=== PATIENT | female | born 1970 | race Hispanic/Latino ===

== ENCOUNTER 2019-08-16 07:28 | Emergency (ER) | payer SELFPAY ==
[2019-08-16] MEDS ORDERED: ONDANSETRON HCL 4 MG/2 ML VIAL ONE (07:57)
[2019-08-16] MEDS ORDERED: LORAZEPAM 2 MG/ML 1 ML VIAL ONE (07:57)
[2019-08-16] MEDS ORDERED: SODIUM CHLORIDE 0.9% 1000ML 1,000 ML IV ONE (07:58)
== END 2019-08-16 09:47 | disposition home or self-care (01) ==
LOC: EDH 07:28
DX: F41.1 Generalized anxiety disorder (principal); R11.2 Nausea with vomiting, unspecified; F32.9 Major depressive disorder, single episode, unspecified; Z72.0 Tobacco use
CPT/HCPCS: 96361; 96374; 96375; 99285; J2060; J2405; J7030

== ENCOUNTER 2019-11-22 18:27 | Emergency (ER) | payer SELFPAY ==
[2019-11-22] MEDS ORDERED: ACETAMINOPHEN EXTRA STRENGTH 500 MG TABLET ONE (18:56)
== END 2019-11-22 18:35 | disposition home or self-care (01) ==
LOC: EDH 18:27
DX: S93.402A Sprain of unspecified ligament of left ankle, initial encounter (principal); X50.1XXA Overexertion from prolonged static or awkward postures, initial encounter; Y93.89 Activity, other specified; Y92.098 Other place in other non-institutional residence as the place of occurrence of the external cause; Y99.8 Other external cause status
CPT/HCPCS: 73610

== ENCOUNTER 2020-09-02 15:36 | Emergency (ER) | payer OTHER ==
[2020-09-02] MEDS ORDERED: KETOROLAC TROMETHAMINE 60 MG/2 ML VIAL ONE (15:55)
[2020-09-02] MEDS ORDERED: CYCLOBENZAPRINE HCL 10 MG TABLET ONE (15:55)
== END 2020-09-02 18:29 | disposition home or self-care (01) ==
LOC: EDH 15:36
DX: M51.16 Intervertebral disc disorders with radiculopathy, lumbar region (principal)
CPT/HCPCS: 72100; 72131; 96372; 99284; J1885

== ENCOUNTER 2020-12-04 15:22 | Emergency (ER) | payer OTHER | END 2020-12-04 15:50 | disposition left against medical advice (07) | LOC: EDH 15:22 | DX: Z53.21 Procedure and treatment not carried out due to patient leaving prior to being seen by health care provider (principal); I10 Essential (primary) hypertension; Z72.0 Tobacco use ==

== ENCOUNTER 2024-02-14 13:06 | Emergency (ER) | payer BC, OTHER ==
[~2024-02-14] VITALS: Ht 162.6 cm; Wt 65.8 kg
[2024-02-14 13:40] LABS: BASOPHILS # (AUTO) 0.03 K/uL (0.00-0.20); BASOPHILS % (AUTO) 0.3 % (0.0-5.0); EOSINOPHILS # (AUTO) 0.07 K/uL (0.00-0.70); EOSINOPHILS % (AUTO) 0.7 % (0.0-8.0); HEMATOCRIT 42.1 % (36-48); IMMATURE GRANULOCYTE ABSOLUTE 0.04 K/uL (0-1); LYMPHOCYTES # (AUTO) 2.4 K/uL (1.0-4.8); LYMPHOCYTES % (AUTO) 24.7 % (21.0-51.0); MEAN CORPUSCULAR HEMOGLOBIN 32.1 pg (27.0-33.0); MEAN CORPUSCULAR HGB CONC 34.2 g/dL (32.0-36.0); MEAN CORPUSCULAR VOLUME 93.8 fL (79-99); MONOCYTES # (AUTO) 0.8 K/uL (0.1-1.0); MONOCYTES % (AUTO) 7.8 % (3.0-13.0); NEUTROPHILS # (AUTO) 6.3 K/uL (1.8-7.7); NEUTROPHILS % (AUTO) 66.1 % (40.0-77.0); PLATELET COUNT (AUTO) 252 K/uL (130-400); RED BLOOD CELL COUNT(AUTO) 4.49 MIL/uL (4.00-5.50); RED CELL DISTRIBUTION WIDTH 14.6 % (11.0-15.5); WHITE BLOOD COUNT (AUTO) 9.6 K/uL (4.8-10.8)
[2024-02-14 13:44] LABS: APPEARANCE,URINE CLOUDY (CLEAR); BILIRUBIN,URINE NEGATIVE (NEGATIVE); COLOR,URINE YELLOW (YELLOW); GLUCOSE, URINE (UA) NEGATIVE (NEGATIVE); KETONES,URINE NEGATIVE (NEGATIVE); LEUKOCYTE ESTERASE ,URINE 500 Leu/uL (NEGATIVE); NITRATE,URINE NEGATIVE (NEGATIVE); OCCULT BLOOD,URINE SMALL (NEGATIVE); PROTEIN,URINE 20 mg/dL (NEGATIVE); UROBILINOGEN,URINE 0.2 mg/dL (0.2-1.0)
[2024-02-14 13:45] LABS: ADD UA MICROSCOPIC YES
[2024-02-14 13:47] LABS: CREATININE 0.8 mg/dL (0.5-1.0); POTASSIUM 3.8 mmol/L (3.5-5.1)
[2024-02-14 13:49] LABS: BACTERIA,URINE MOD /HPF (None Seen); MUCUS,URINE FEW LPF (None Seen); SQUAMOUS EPITHELIAL CELL,UR MANY /HPF (0-2)
[2024-02-14 13:52] LABS: ALBUMIN 3.4 g/dL (3.5-5.0); BILIRUBIN,TOTAL 0.2 mg/dL (0.2-1.0); TOTAL PROTEIN, SERUM 7.6 g/dL (6.0-8.3)
[2024-02-14] MEDS ORDERED: IOHEXOL-350 75 ML VIAL IV ONE (15:22)
[2024-02-14] MEDS: ONDANSETRON 4MG INJ IVP ONE (15:46)
[2024-02-14] MEDS: MORPHINE 4 MG SYG IVP ONE (15:46)
[2024-02-14] MEDS: 0.9%NACL 1000ML 1,000 ML IV ONE (15:47)
[2024-02-14] MEDS: CEFTRIAXONE 1G VIAL IVPB ONE (17:07)
[2024-02-14] MEDS: MORPHINE 2 MG SYG IVP ONE (17:07)
[2024-02-14] MEDS: KETOROLAC 60 MG VIAL (30MG/ML) IM ONE (17:16)
[2024-02-14 17:17] VITALS: BP 143/74; PULSE 81; RESP 18; O2SAT 100
[2024-02-14] MEDS ORDERED: ONDA-243 PO (18:05)
[2024-02-14] MEDS ORDERED: CEPH500B PO (18:05)
[2024-02-14] MEDS ORDERED: HYDR-4060 PO (18:05)
[2024-02-15] MEDS ORDERED: HYDR-4060 PO (14:25)
== END 2024-02-14 18:13 | disposition home or self-care (01) ==
LOC: EDH 13:06
DX: N39.0 Urinary tract infection, site not specified (principal); R10.30 Lower abdominal pain, unspecified; R11.10 Vomiting, unspecified; R19.7 Diarrhea, unspecified; I10 Essential (primary) hypertension; F32.A Depression, unspecified
CPT/HCPCS: 99284; 74177; 96374; 96375; 84484; 80053; 83690; 85025; 87088; 81001; 36415; 96376; 93005; 96372; J2270 ×2; J7030; J0696; J2405; J1885; Q9967

== ENCOUNTER 2024-12-09 15:32 | Emergency (ER) | payer BC ==
[~2024-12-09] VITALS: Ht 162.6 cm; Wt 63.5 kg
[~2024-12-09 15:32] MED LIST: CEPH500B PO; HYDR-4060 PO; ONDA-243 PO
[2024-12-09 15:58] VITALS: BP 147/91; PULSE 88; RESP 20; TEMP 98.4; O2SAT 97
[2024-12-09] MEDS ORDERED: DOXY100C5 PO (16:48)
--- NOTE | 2024-12-09 16:48 | ERN ---
ED Note History of Present Illness Stated Complaint: BLEEDING FROM TICK ON HEAD Chief Complaint: Insect Bite Time Seen by MD: 15:54 Time Seen by Midlevel: 15:54 Dictation: The patient is a 54-year-old female with no significant medical history who presents to the emergency department complaints of headache in scalp pain after being bitten by a dog tick onset three weeks ago. Patient reports her dog usually likes to lay down with her on her head. Reports she removed the take but reports pain and headaches. Patient does report a fever onset two days ago. Allergies: Coded Allergies: No Known Drug Allergies (Unverified Allergy, Unknown, 02/14/24) Home Meds Active Scripts Doxycycline Hyclate (Doxycycline Hyclate) 100 Mg Capsule, 1 CAP PO BID for 10 Days, #20 CAP 0 Refills Prov:CLAUDIA PEREZP 12/09/24 Hydrocodone/Acetaminophen (Hydrocodon-Acetaminophen 5-325) 5 Mg-325 Mg Tablet, 1 EACH PO Q4HPRN PRN for PAIN, #18 TAB Prov:DARCI KOHLI MD 02/15/24 Cephalexin Monohydrate (Keflex) 500 Mg Cap, 500 MG PO BID for 5 Days, #10 CAP Prov:CUCA PEREZ MD 02/14/24 Ondansetron (Ondansetron Odt) 4 Mg Tab.rapdis, 4 MG PO Q6HPRN PRN for nausea, #16 TAB 0 Refills Prov:CUCA PEREZ MD 02/14/24 Past Medical History Past Medical History: Depression, Hypertension Surgical History: None, BTL History: Not Applicable RN Note Reviewed/Agreed w/PFSH: Yes Review of System Dictation Constitutional: Negative for fever,chills, and weight loss Eyes: Negative for injury, pain,redness, and discharge ENT: Negative for injury,pain or swelling Cardiovascular: Negative for chest pain, palpitations, and edema Respiratory: Negative for shortness of breath, cough, and wheezing, Abdomen/GI: Negative for abdominal pain, nausea, vomiting, diarrhea, and constipation Back: Negative for injury and pain : Negative for injury, bleeding and discharge MS/Extremity: Negative for injury and deformity Skin: Positive for scalp wound Neuro: Negative for headache, weakness, numbness, tingling, and seizure Psych: Negative for suicide ideation, homicidal ideation, and hallucinations Initial Vital Sign VS Vital Signs Date Time Temp Pulse Resp B/P (MAP) Pulse Ox O2 Delivery O2 Flow Rate FiO2 12/09/24 15:46 98.4 93 20 149/111 97 Room Air 0 12/09/24 15:58 21 Physical Exam Dictation Vital Signs reviewed General Appearance: Alert, oriented x 3, no acute distress, well developed, nourished. Head and Face: non-traumatic. Eyes: PERRL, pink conjunctivas, eyelid no trauma, anterior chamber with arcus senilis. Ears: Pinnas intact and no signs of trauma or erythema ear canals clear and no discharge TM no erythema Nose: No discharge, no bleeding. Oropharynx: Mouth normal, tongue pink. pharynx clear,no erythema, tonsils no exudates, no abscesses noted, mucous membrane moist Neck: Supple, non-tender, no thyromegaly, no masses, no JVD, no bruits Breast:Deferred Chest:No tenderness, no crepitus, no paradoxical movement, no retractions Lungs:Clear, well-ventilated, symmetric, no rales, no wheezing, no rhonchi, no stridor, good breath sounds bilaterally Heart: Regular rate, regular rhythm, no murmur, no gallops Vascular: no peripheral edema, Abdomen: Soft, positive bowel sounds, nondistended, no guarding, nontender, no rebound, no masses no hepatomegaly, no splenomegaly, no Funes's sign, no hernias. Rectal: Deferred Genital: Deferred Neurological: Normal speech, motor function intact, sensory function intact Musculoskeletal: Neck nontender, full range of motion, back nontender, full range of motion, Extremities: nontender, full range of motion Skin: Color pink, dry, no turgor, no rash, no lacerations, no abrasions, no contusions. Small papules to posterior scalp, no drainage, scabbing, slight erythema. Tender to palpation Lymphatic: Deferred Results (Laboratory/Radiology) Labs Reviewed?: Yes ED Course ED Course Orders Procedure Category Date Status Time Acetaminophen 500mg PHA 12/09/24 Complete Tab (Tylenol 500mg T 17:00 Doxycycline Hyclate PHA 12/09/24 In Process (Doxycycline Hyclate 17:00 Current Medications Medications (Trade) Dose Ordered Sig/Alan Route PRN Reason Start Time Stop Time Status Last Admin Dose Admin Acetaminophen (TYLenol 500MG TAB) 1,000 mg ONCE ONCE PO 12/09/24 17:00 12/09/24 17:01 DC Doxycycline Hyclate (Doxycycline Hyclate) 100 mg ONCE PO 12/09/24 17:00 12/10/24 16:59 Vital Signs Date Time Temp Pulse Resp B/P (MAP) Pulse Ox O2 Delivery O2 Flow Rate FiO2 12/09/24 15:58 98.4 88 20 147/91 97 Room Air* 0 21 12/09/24 15:46 98.4 93 20 149/111 97 Room Air 0 Medical Decision Making MDM The patient is a 54-year-old female with no significant medical history who presents to the emergency department complaints of headache in scalp pain after being bitten by a dog tick onset three weeks ago. Patient reports her dog usually likes to lay down with her on her head. Reports she removed the take but reports pain and headaches. Patient does report a fever onset two days ago. Patient with a a small erythemic less than 0.5 cm wound to scalp. No drainage, scabbing noted. Patient with no fevers in stable vital signs in triage. Non tachycardic. Patient no acute distress will be discharged to follow up with PCP. Differential diagnosis: Cellulitis, tick bite, headache Need for hospitalization: Patient does not meet criteria for hospitalization. There are no social concerns with this patient. DX & DISP Disposition: Discharge Departure Impression: Primary Impression: Tick bite Additional Impression: Tick bite of scalp Condition: Stable Scripts Doxycycline Hyclate (Doxycycline Hyclate) 100 Mg Capsule 1 CAP PO BID for 10 Days, #20 CAP 0 Refills Prov: CLAUDIA PEREZ WATCH REPAIR PERSON 12/09/24 Additional Instructions: Is follow up with the primary doctor in 1-2 days. If symptoms worsen please return to ER. FOLLOW-UP WITH PRIMARY CARE PROVIDER IN 1 TO 2 DAYS. TAKE MEDICATIONS DIRECTED HERE IN THE EMERGENCY ROOM. OKAY TO CONTINUE HOME MEDICATIONS UNLESS OTHERWISE DISCUSSED DURING YOUR VISIT IN THE EMERGENCY ROOM TODAY. RETURN TO YOUR NEAREST EMERGENCY ROOM IF SYMPTOMS WORSEN OR IF THERE IS NO IMPROVEMENT. CALL 911 IF YOU NEED IMMEDIATE ASSISTANCE. TAKE TYLENOL OR MOTRIN [id number] NEEDED AND IF NO CONTRAINDICATIONS ARE PRESENT. INCREASE ORAL HYDRATION. A WOUND CULTURE OR URINE CULTURE WAS ORDERED HERE IN THE EMERGENCY ROOM DEPARTMENT PLEASE FOLLOW-UP WITH PRIMARY CARE PROVIDER AND ADVISE THEM TO GET REPEAT PORTS FROM OUR FACILITY. IF YOU HAD ANY TENZIN WRAP/SPLINTS THAT WERE APPLIED HERE, PLEASE DO NOT REMOVE THEM UNTIL YOU SEE YOUR PRIMARY CARE OR SPECIALTY. Referrals: LYDIA LONDON MD (PCP) Time of Disposition: 16:44 I have reviewed the case, and I agree with, Diagnosis and Plan CLAUDIA PEREZ WATCH REPAIR PERSON Dec 09, 2024 16:48
[2024-12-09] MEDS: DOXYCYCLINE HYCLATE 100 MG TABLET PO SCH (17:11)
[2024-12-09] MEDS: acetaMINOPHEN 500 MG TABLET PO ONE (17:11)
== END 2024-12-09 17:16 | disposition home or self-care (01) ==
LOC: EDH 15:32
DX: S00.06XA Insect bite (nonvenomous) of scalp, initial encounter (principal); I10 Essential (primary) hypertension; F32.A Depression, unspecified; Z98.51 Tubal ligation status; W57.XXXA Bitten or stung by nonvenomous insect and other nonvenomous arthropods, initial encounter; Y93.89 Activity, other specified; Y92.89 Other specified places as the place of occurrence of the external cause; Y99.8 Other external cause status
CPT/HCPCS: 99283

== ENCOUNTER 2025-04-27 19:51 | Emergency (ER) | payer BC ==
[~2025-04-27] VITALS: Ht 160 cm; Wt 63.5 kg
[~2025-04-27 19:51] MED LIST changes: +DOXY100C5 PO
[2025-04-27 20:17] VITALS: BP 159/73; PULSE 73; RESP 20; TEMP 97.9; O2SAT 100
[2025-04-27] MEDS ORDERED: ACET-66 PO (20:19)
--- NOTE | 2025-04-27 20:20 | ERN ---
ED Note History of Present Illness Stated Complaint: C/O PAIN TO HEAD AFTER HER DOG JUMPED ON PTS HEAD Chief Complaint: Headache Time Seen by MD: 20:01 Dictation: PATIENT IS A 54-YEAR-OLD FEMALE HERE WITH COMPLAINTS OF A LEFT PARIETAL HEADACHE AFTER SHE WAS HIT IN THE HEAD BY HER DOG. STATES SHE WAS LYING ON THE FLOOR NEXT TO HER DOG WHEN HER DOG GOT UP AND HIT HER WITH HER ELBOW. NO LOC NO NAUSEA VOMITING NO GAIT CHANGES. NO BLOOD THINNERS NO TRAUMA ALERT CRITERIA. FOUR. ON EXAM IN TRIAGE PATIENT HAS NO FLORES OR RACCOON SIGN [facility] IS 0 NEUROLOGICALLY INTACT NO INDICATIONS FOR CT AT THIS TIME. Allergies: Coded Allergies: No Known Drug Allergies (Unverified Allergy, Unknown, 02/14/24) Home Meds Active Scripts Doxycycline Hyclate (Doxycycline Hyclate) 100 Mg Capsule, 1 CAP PO BID for 10 Days, #20 CAP 0 Refills Prov:CLAUDIA PEREZ RADIOACTIVITY TECHNICIAN 12/09/24 Hydrocodone/Acetaminophen (Hydrocodon-Acetaminophen 5-325) 5 Mg-325 Mg Tablet, 1 EACH PO Q4HPRN PRN for PAIN, #18 TAB Prov:DARCI KOHLI MD 02/15/24 Cephalexin Monohydrate (Keflex) 500 Mg Cap, 500 MG PO BID for 5 Days, #10 CAP Prov:CUCA PEREZ MD 02/14/24 Ondansetron (Ondansetron Odt) 4 Mg Tab.rapdis, 4 MG PO Q6HPRN PRN for nausea, #16 TAB 0 Refills Prov:CUCA PEREZ MD 02/14/24 Past Medical History Past Medical History: No Pertinent History Surgical History: Other History: Not Applicable RN Note Reviewed/Agreed w/PFSH: Yes Review of System Dictation CONSTITUTIONAL: NEGATIVE EXCEPT FOR HPI HEAD/FACE: NEGATIVE EXCEPT FOR HP LEFT PARIETAL TENDERNESS EENT: NEGATIVE EXCEPT FOR HPI RESPIRATORY: NEGATIVE EXCEPT FOR HPI GASTROINTESTINAL/ABDOMINAL: NEGATIVE EXCEPT FOR HPI GENITOURINARY: NEGATIVE EXCEPT FOR HPI MUSCULOSKELETAL: NEGATIVE EXCEPT FOR HPI INTEGUMENTARY: NEGATIVE EXCEPT FOR HPI NEUROLOGICAL/PSYCH: NEGATIVE EXCEPT FOR HPI HEMATOLOGIC/LYMPHATIC: NEGATIVE EXCEPT FOR HPI ALL SYSTEMS NEGATIVE, EXCEPT NOTED ABOVE. 13 POINT REVIEW OF SYSTEMS ASSESSED AND ALL NEGATIVE EXCEPT FOR ABOVE. Initial Vital Sign VS Vital Signs Date Time Temp Pulse Resp B/P (MAP) Pulse Ox O2 Delivery O2 Flow Rate FiO2 8/20/25 19:58 97.9 73 20 159/98 100 Room Air Physical Exam Dictation VITAL SIGNS REVIEWED GENERAL APPEARANCE: ALERT, ORIENTED X 3, MILD ACUTE DISTRESS, WELL DEVELOPED, NOURISHED. HEAD AND FACE: MILD LEFT PARIETAL TENDERNESS. NO OVERT SKULL FRACTURE NO HEMOTYMPANUM NO FLORES OR RACCOON SIGN. EYES: PERRL, PINK CONJUNCTIVAS, EYELID NO TRAUMA, ANTERIOR CHAMBER WITH ARCUS SENILIS. EARS: PINNAS INTACT AND NO SIGNS OF TRAUMA OR ERYTHEMA EAR CANALS CLEAR AND NO DISCHARGE TM NO ERYTHEMA NOSE: NO DISCHARGE, NO BLEEDING. OROPHARYNX: MOUTH NORMAL, TONGUE PINK, PHARYNX CLEAR,NO ERYTHEMA, TONSILS NO EXUDATES, NO ABSCESSES NOTED, MUCOUS MEMBRANE MOIST NECK: SUPPLE, NON-TENDER, NO THYROMEGALY, NO MASSES, NO JVD, NO BRUITS BREAST:DEFERRED CHEST:NO TENDERNESS, NO CREPITUS, NO PARADOXICAL MOVEMENT, NO RETRACTIONS LUNGS:CLEAR, WELL-VENTILATED, SYMMETRIC, NO RALES, NO WHEEZING, NO RHONCHI, NO STRIDOR, GOOD BREATH SOUNDS BILATERALLY HEART: REGULAR RATE, REGULAR RHYTHM, NO MURMUR, NO GALLOPS VASCULAR: NO PERIPHERAL EDEMA, ABDOMEN: SOFT, POSITIVE BOWEL SOUNDS, NONDISTENDED, NO GUARDING, NONTENDER, NO REBOUND, NO MASSES NO HEPATOMEGALY, NO SPLENOMEGALY, NO BURT'S SIGN, NO HERNIAS. RECTAL: DEFERRED GENITAL: DEFERRED NEUROLOGICAL: NORMAL SPEECH, MOTOR FUNCTION INTACT, SENSORY FUNCTION INTACT [facility] IS 0 MUSCULOSKELETAL: NECK NONTENDER, FULL RANGE OF MOTION, BACK NONTENDER, FULL RANGE OF MOTION, EXTREMITIES: NONTENDER, FULL RANGE OF MOTION SKIN: COLOR PINK, DRY, NO TURGOR, NO RASH, NO LACERATIONS, NO ABRASIONS, NO CONTUSIONS. LYMPHATIC: DEFERRED Results (Laboratory/Radiology) Labs Reviewed?: Yes ED Course ED Course Orders Procedure Category Date Status Time Apply Ice Pack To: CPOE 04/27/25 Verified (Er) 20:13 Acetaminophen 500mg PHA 04/27/25 Verified Tab (Tylenol 500mg T 20:30 Vital Signs Date Time Temp Pulse Resp B/P (MAP) Pulse Ox O2 Delivery O2 Flow Rate FiO2 04/27/25 19:58 97.9 73 20 159/98 100 Room Air 2015/PATIENT DOES NOT MEET THE CRITERIA FOR CAT SCAN BASED ON MALTESE CT RULES. THIS WAS EXPLAINED TO PATIENT , CLOSED HEAD INJURY INSTRUCTIONS WERE GIVEN TO HER ADDITIONALLY SHE STATES SHE TOOK JESSIE ASPIRIN FOR PAIN, SHE WAS STRONGLY ADVISED TO TAKE TYLENOL DUE TO LES POTENTIAL FOR GASTRIC UPSET OR BLEEDING. Medical Decision Making MDM MEDICAL DISCHARGE MAKING BASED ON PHYSICAL EXAMINATION AND [place] HEAD INJURY RULES. PATIENT HAS NO INDICATION FOR CT AT THIS TIME. WE WILL TREAT PATIENT WITH A ACETAMINOPHEN AND AN ICE PACK SHE WAS PROVIDED CLOSED HEAD INJURY INSTRUCTIONS INSTRUCTED TO RETURN BACK TO THE EMERGENCY ROOM IF ANY CHANGES FROM HEAD INJURY SHEET. DX & DISP Disposition: Discharge Departure Impression: Primary Impression: Contusion of scalp, initial encounter Additional Impression: Minor head trauma Condition: Stable Scripts Acetaminophen (Acetaminophen) 500 Mg Tablet 2 TAB PO Q6HPRN PRN for pain or fever, #60 TAB 0 Refills Prov: FARAZ COPPOLA NP 04/27/25 Additional Instructions: FOLLOW-UP WITH PRIMARY CARE PROVIDER IN 1 TO 2 DAYS. TAKE MEDICATIONS DIRECTED HERE IN THE EMERGENCY ROOM. OKAY TO CONTINUE HOME MEDICATIONS UNLESS OTHERWISE DISCUSSED DURING YOUR VISIT IN THE EMERGENCY ROOM TODAY. RETURN TO YOUR NEAREST EMERGENCY ROOM IF SYMPTOMS WORSEN OR IF THERE IS NO IMPROVEMENT. CALL 911 IF YOU NEED IMMEDIATE ASSISTANCE. TAKE TYLENOL OR MOTRIN [id number] NEEDED AND IF NO CONTRAINDICATIONS ARE PRESENT. INCREASE ORAL HYDRATION. A WOUND CULTURE OR URINE CULTURE WAS ORDERED HERE IN THE EMERGENCY ROOM DEPARTMENT PLEASE FOLLOW-UP WITH PRIMARY CARE PROVIDER AND ADVISE THEM TO GET REPEAT PORTS FROM OUR FACILITY. IF YOU HAD ANY TENZIN WRAP/SPLINTS THAT WERE APPLIED HERE, PLEASE DO NOT REMOVE THEM UNTIL YOU SEE YOUR PRIMARY CARE OR SPECIALTY. COOL COMPRESSES TO SCALP PAIN THREE TO 4 TIMES A DAY. STRONGLY SUGGEST TAKING TYLENOL OR ACETAMINOPHEN FOR PAIN RATHER THAN JESSIE ASPIRIN DUE TO RISK OF GASTRIC UPSET AND BLEEDING. SEE YOUR PRIMARY CARE DOCTOR IN 1-2 DAYS OR RETURN TO THE EMERGENCY ROOM IF ANY CHANGES FROM HEAD INJURY WORK SHEET. Referrals: LYDIA LONDON MD (PCP) Time of Disposition: 20:17 I have reviewed the case, and I agree with, Diagnosis and Plan FARAZ COPPOLA NP Apr 27, 2025 20:19
== END 2025-04-27 20:25 | disposition home or self-care (01) ==
LOC: EDH 19:51
DX: S00.03XA Contusion of scalp, initial encounter (principal); Z79.899 Other long term (current) drug therapy; W54.1XXA Struck by dog, initial encounter; Y93.89 Activity, other specified; Y92.89 Other specified places as the place of occurrence of the external cause; Y99.8 Other external cause status
CPT/HCPCS: 99282